=== PATIENT | female | born 1965 | race Caucasian/White ===

== ENCOUNTER 2016-12-27 20:58 | Emergency (ER) | payer MEDICAID ==
[~2016-12-27] VITALS: Ht 175.3 cm; Wt 127.0 kg
[2016-12-27 21:05] VITALS: BP 152/101; PULSE 81; RESP 17; TEMP 97.3; O2SAT 97
--- NOTE | 2016-12-27 21:30 | NUR ---
Patient to ER bed 2 to gown for evaluation. Side rails up. Report given to Sade DEWEY.
--- NOTE | 2016-12-27 21:56 | NUR ---
ER Dr. Cavazos at bedside examining patient.
[2016-12-27] MEDS ORDERED: KETOROLAC TROMETHAMINE 60 MG/2 ML VIAL IM ONE (22:00)
--- NOTE | 2016-12-27 22:00 | NUR ---
Patient alert and oriented x 4. Came in the ER with complaints of headache x 2 days with nausea. No vomiting or diarrhea or dizziness noted. Patient stated that she has vision problems before and maybe that is the reason why she is having the headaches but today, the pain is worse. No acute distress or SOB noted.
[2016-12-27 23:42] VITALS: BP 148/89; PULSE 80; RESP 18; TEMP 97.4; O2SAT 98
--- NOTE | 2016-12-27 23:42 | NUR ---
Patient given written and verbal discharge instructions and verbalizes understanding. ER MD discussed with patient the results and treatment provided. Patient in stable condition. No acute distress or SOB noted upon discharge. ID arm band removed. Rx of Ibuprofen given. Patient educated on pain management and to follow up with PMD. Pain Scale 0/10. Opportunity for questions provided and answered.
== END 2016-12-27 23:42 | disposition home or self-care (01) ==
LOC: SED 20:58
DX: J06.9 Acute upper respiratory infection, unspecified (principal); J45.909 Unspecified asthma, uncomplicated; K21.9 Gastro-esophageal reflux disease without esophagitis; Z85.3 Personal history of malignant neoplasm of breast; Z88.0 Allergy status to penicillin
CPT/HCPCS: 36415; 81025; 86710; 96372; 99284; J1885

== ENCOUNTER 2018-10-06 13:33 | Emergency (ER) | payer MEDICAID ==
[~2018-10-06] VITALS: Ht 177.8 cm; Wt 127.0 kg
[2018-10-06 13:49] VITALS: BP_SYST 136
--- NOTE | 2018-10-06 14:11 | NUR ---
Patient to ER bed 2 to gown for evaluation. Side rails up. Report given to Suri DEWEY.
--- NOTE | 2018-10-06 14:15 | NUR ---
Pt AAOx4 ambulated into ED c/o 04/14 migraine headache x 2 days. Pt took 7 tylenol and 6 ibuprofen yesterday with relief. Headache returned today; pt took 4 tylenol today with no relief. Pt denies blurred vision/nausea/vomiting. Skin pink dry and warm, breathing even and unlabored. No other injuries/complaints per pt/noted. Will continue to monitor.
--- NOTE | 2018-10-06 14:20 | NUR ---
ER Dr. Gant at bedside examining patient.
[2018-10-06] MEDS ORDERED: KETOROLAC TROMETHAMINE 60 MG/2 ML VIAL IM ONE (14:45)
--- NOTE | 2018-10-06 14:47 | NUR ---
Pt returned from radiology via wheelchair in stable condition
--- NOTE | 2018-10-06 14:47 | NUR ---
Medication administered. PT tolerated well. No adverse reactions noted.
--- NOTE | 2018-10-06 16:11 | NUR ---
Patient given written and verbal discharge instructions and verbalizes understanding. ER MD Gant discussed with patient the results and treatment provided. Patient in stable condition. ID arm band removed. Rx of Tramadol Hydrochloride given. Patient educated on pain management and to follow up with PMD. Pain Scale 2. MD Gant aware. Opportunity for questions provided and answered. Medication side effect fact sheet provided.
[2018-10-06 16:16] VITALS: BP_SYST 133
== END 2018-10-06 16:16 | disposition home or self-care (01) ==
LOC: SED 13:33
DX: G43.909 Migraine, unspecified, not intractable, without status migrainosus (principal); J45.909 Unspecified asthma, uncomplicated; K21.9 Gastro-esophageal reflux disease without esophagitis; E11.9 Type 2 diabetes mellitus without complications; Z90.89 Acquired absence of other organs; Z85.3 Personal history of malignant neoplasm of breast; Z88.0 Allergy status to penicillin
CPT/HCPCS: 70450; 96372; 99284; J1885